=== PATIENT | female | born 1990 | race Two or more races ===

== ENCOUNTER 2023-05-21 19:56 | Emergency (ER) | payer MEDICAID, OTHER ==
[~2023-05-21] VITALS: Ht 152.4 cm; Wt 61.0 kg
[2023-05-21] MEDS ORDERED: LORazepam 2MG/ML-1ML VIAL ONE (20:10)
[2023-05-21] MEDS ORDERED: LORazepam 2MG/ML-1ML VIAL IV ONE (20:15)
[2023-05-21 21:16] LABS: Basophils # (auto) 0 10 ^3/uL (0-0.2); Eosinophils # (auto) 0 10 ^3/uL (0-0.8); Lymphocytes % (auto) 12.2 % (10.0-50.0); Mean Corpuscular Hemoglobin 24.3 pg (28.0-32.0); Red Cell Distribution Width 17.5 % (11.8-14.3)
[2023-05-21 21:18] LABS: Basophils % (auto) 0.4 % (0.0-2.0); Hematocrit 37.2 % (36.0-46.0); Hemoglobin 11.9 g/dL (12.2-16.2); Mean Corpuscular Volume 75.9 fL (80.0-100.0); Monocytes # (auto) 0.2 10 ^3/uL (0-1.3); Monocytes % (auto) 2.9 % (0.0-12.0); Neutrophils # (auto) 6.7 10 ^3/uL (1.6-8.6); Neutrophils % (auto) 84.5 % (37.0-80.0); Red Blood Cells 4.91 10^6/uL (4.0-5.20); White Blood Cell 7.9 10^3/uL (4.4-10.8)
[2023-05-21 21:24] LABS: Acetaminophen < 2.0 UG/ML (10.0-20.0); Alanine Aminotransferase 15 U/L (7-40); Albumin 4.8 g/dL (3.2-4.8); Alkaline Phosphatase 101 U/L (46-116); Anion Gap 16.2 (5-15); Aspartate Aminotransferase 17 U/L (13-40); BUN/Creatinine Ratio 7.8 (10.0-20.0); Blood Alcohol 187.4 mg/dL (<10); Blood Urea Nitrogen 7 mg/dL (9-23); Calcium 9.4 mg/dL (8.5-10.1); Carbon Dioxide 15.8 mmol/L (20-30); Chloride 107 mmol/L (98-107); Glucose 119 mg/dL (74-106); Sodium 139 mmol/L (136-145)
[2023-05-21 21:25] LABS: Bilirubin, Total 0.5 mg/dL (0.2-1.0)
[2023-05-21 21:28] LABS: Potassium 2.9 mmol/L (3.5-5.1)
[2023-05-21 21:29] LABS: Salicylate < 3.0 mg/dL (2.8-20.0)
[2023-05-21 23:46] VITALS: PULSE 107; RESP 12; O2SAT 97
[2023-05-22] MEDS ORDERED: ACETAMINOPHEN 325 MG TAB PO ONE ×2 (00:30→10:15)
[2023-05-22 01:42] LABS: Amphetamine Screen, Urine Neg (NEGATIVE); Barbiturate Scree,Urine Neg (NEGATIVE); Benzodiazephine Screen, Urine Neg (NEGATIVE); Cocaine Screen, Urine Neg (NEGATIVE); Opiate Scree,Urine Neg (NEGATIVE); Phencyclidine Screen, Urine Neg (NEGATIVE); Urine Bacteria MANY /hpf (None Seen); Urine Blood Negative /uL (Negative); Urine Clarity Clear (Clear); Urine Color Colorless (Yellow); Urine Hyaline Cast FEW /lpf (0 - 2); Urine Mucus FEW (None Seen); Urine Protein, UAD TRACE (Negative); Urine Specific Gravity 1.009 (1.001-1.035); Urine Urobilinogen Normal (Negative); Urine WBC 4 /hpf (0 - 5); Urine pH 6.5 (5.0-8.0)
[2023-05-22 01:55] LABS: Cannabinoid Screen, Urine Neg (NEGATIVE)
[2023-05-22 07:43] VITALS: PULSE 104; RESP 27; O2SAT 97
[2023-05-22] MEDS ORDERED: POTASSIUM CHL 20 Meq TABLET PO ONE ×2 (07:45→11:00)
[2023-05-22 10:02] LABS: Alanine Aminotransferase 15 U/L (7-40); Albumin 4.5 g/dL (3.2-4.8); Alkaline Phosphatase 99 U/L (46-116); Anion Gap 6.7 (5-15); Aspartate Aminotransferase 21 U/L (13-40); BUN/Creatinine Ratio 10.3 (10.0-20.0); Bilirubin, Total 0.6 mg/dL (0.2-1.0); Blood Urea Nitrogen 8 mg/dL (9-23); Calcium 9.4 mg/dL (8.5-10.1); Carbon Dioxide 25.3 mmol/L (20-30); Chloride 106 mmol/L (98-107); Glucose 130 mg/dL (74-106); Potassium 3.3 mmol/L (3.5-5.1); Sodium 138 mmol/L (136-145); Total Protein 7.5 g/dL (5.7-8.2)
[2023-05-22 19:58] VITALS: PULSE 98; RESP 20; O2SAT 97
[2023-05-24 12:09] VITALS: BP 151/92; PULSE 97; RESP 14; TEMP 98.3; O2SAT 97
== END 2023-05-24 12:36 | disposition short-term general hospital (02) ==
LOC: EDBD 19:56 → ER 19:56
DX: S61.411A Laceration without foreign body of right hand, initial encounter (principal); R45.851 Suicidal ideations; X78.8XXA Intentional self-harm by other sharp object, initial encounter; Y93.89 Activity, other specified; Y92.89 Other specified places as the place of occurrence of the external cause; Y99.8 Other external cause status
CPT/HCPCS: 36415; 73130; 80053; 80307; 80320; 80329; 81001; 85025; 96374; 99285; J2060

== ENCOUNTER 2023-05-26 09:31 | Emergency (ER) | payer MEDICAID ==
[~2023-05-26] VITALS: Ht 149.9 cm; Wt 55.1 kg
[2023-05-26 10:22] VITALS: BP 138/99; PULSE 77; RESP 16; TEMP 97.9; O2SAT 98
[2023-05-26] MEDS ORDERED: CEPH500C PO (10:36)
== END 2023-05-26 10:39 | disposition home or self-care (01) ==
LOC: ER 09:31
DX: S61.214D Laceration without foreign body of right ring finger without damage to nail, subsequent encounter (principal); Z79.899 Other long term (current) drug therapy; W25.XXXD Contact with sharp glass, subsequent encounter

== ENCOUNTER 2023-10-13 23:57 | Emergency (ER) | payer SELFPAY ==
[~2023-10-13] VITALS: Ht 149.9 cm; Wt 56.3 kg
[~2023-10-13 23:57] MED LIST: CEPH500C PO
[2023-10-14] MEDS ORDERED: ONDANSETRON HCL 4 MG/2 ML VIAL IM ONE (00:15)
[2023-10-14 00:30] LABS: Basophils # (auto) 0 10 ^3/uL (0-0.2); Eosinophils # (auto) 0 10 ^3/uL (0-0.8); Hemoglobin 11.5 g/dL (12.2-16.2); Monocytes # (auto) 0.3 10 ^3/uL (0-1.3); Neutrophils # (auto) 4.5 10 ^3/uL (1.6-8.6); Neutrophils % (auto) 76.9 % (37.0-80.0); White Blood Cell 5.9 10^3/uL (4.4-10.8)
[2023-10-14] MEDS ORDERED: MECLIZINE HCL 25 MG TAB PO ONE (00:30)
[2023-10-14 00:32] LABS: Basophils % (auto) 0.3 % (0.0-2.0); Eosinophils % (auto) 0.6 % (0.0-7.0); Hematocrit 36.5 % (36.0-46.0); Lymphocytes % (auto) 17.4 % (10.0-50.0); Mean Corpuscular Hemoglobin 24.5 pg (28.0-32.0); Mean Corpuscular Hgb Conc. 31.6 g/dL (32.0-36.0); Mean Corpuscular Volume 77.5 fL (80.0-100.0); Monocytes % (auto) 4.8 % (0.0-12.0); Red Cell Distribution Width 17.7 % (11.8-14.3)
[2023-10-14] MEDS ORDERED: MECL1TAB42 PO (00:34)
[2023-10-14 00:37] VITALS: BP 138/87; PULSE 82; RESP 14; TEMP 97.6; O2SAT 99
[2023-10-14 00:38] LABS: Chloride 106 mmol/L (98-107); Potassium 3.7 mmol/L (3.5-5.1); Sodium 138 mmol/L (136-145)
[2023-10-14 00:39] LABS: Anion Gap 5 (5-15); Calcium 9.1 mg/dL (8.7-10.4); Carbon Dioxide 27 mmol/L (20-30)
[2023-10-14 00:44] LABS: BUN/Creatinine Ratio 11.3 (10.0-20.0); Blood Urea Nitrogen 7 mg/dL (9-23); Glucose 108 mg/dL (74-106)
== END 2023-10-14 01:42 | disposition home or self-care (01) ==
LOC: ER 23:57
DX: R42 Dizziness and giddiness (principal); H92.02 Otalgia, left ear
CPT/HCPCS: 36415; 80048; 85025; 96372; 99283; J2405; J8597